=== PATIENT | male | born 1935 | race Caucasian/White ===

== ENCOUNTER → 2019-06-28 | Outpatient (CLI) | payer MEDICARE, OTHER ==
[~2019-06-28] MED LIST: ACIPHEX20 MG PO; AMOXICILLIN875 MG PO; BENZTROPINE1 MG PO; CARBIDOPA & LEV1 TA1 PO; LIPITOR10 MG PO
== END | disposition home or self-care (01) ==
LOC: ORTHO 01:09
DX: M17.12 Unilateral primary osteoarthritis, left knee (principal)